=== PATIENT | female | born 1960 | race Caucasian/White ===

== ENCOUNTER 2016-08-19 15:58 | Emergency (ER) | payer MEDICAID, OTHER ==
[2016-08-19 16:06] VITALS: RESP 18; O2SAT 98
--- NOTE | 2016-08-19 16:31 | EDPHY ---
H & P Time Seen by Provider: 08/19/16 16:22 HPI/ROS: CHIEF COMPLAINT: Right lateral knee pain HISTORY OF PRESENT ILLNESS: 56-year-old female complaining of right lateral knee pain after she was in aerobics class yesterday, jumped laterally and felt immediate right posterolateral knee pain. She is able to bear weight albeit with pain. Notes history of intermittent knee locking up previously. No paresthesia. No direct trauma or fall. PHYSICAL EXAM (Prior to examination, patient consented to physical exam, hands were washed and my usual and customary physical exam procedures followed) 1) GENERAL: Well-developed, well-nourished, alert and oriented. Appears to be in no acute distress. 2) HEAD: Normocephalic 3) HEENT: Pupils equal, round, reactive to light bilaterally. 4) LUNGS: Breathing comfortably. 5) MUSCULOSKELETAL: Exam of the right knee shows soft tissue swelling/fusion . Compartments are soft. tender to palpation posterior lateral aspect of the knee reproducible with range of motion. Full flexion and extension. 6) SKIN: intact no discoloration 7) VASCULAR: DP,PT pulses and cap refill present and brisk distally DIFFERENTIAL DIAGNOSIS: in no particular order including but not limited to fracture, sprain, compartment syndrome, septic arthritis, DVT Xray of the right knee interpreted by myself: no definitive acute osseous abnormality Procedure: Splint A knee immobilizer splint was applied by ER wind technician. After application of the splint I returned and re-examined the patient. The splint was adequately immobilizing the joint and distal to the splint the patient's circulation and sensation were intact. Patient shows no signs of compartment syndrome. Was given orthopedic precautions. MEDICAL DECISION MAKING Serial evaluations performed on patient. I discussed the limitations of x-ray in diagnosis of knee pain and injury. At this time I do not think that emergent MRI is currently indicated. However, I have recommended follow-up with Orthopedic surgery and provided this referral information. Informed the patient that outpatient MRI may be indicated. Doubt septic arthritis. Doubt compartment syndrome. Doubt DVT. Smoking Status: Never smoked Constitutional: Initial Vital Signs Temperature (C) 36.8 C 03/03/17 16:00 Heart Rate 86 08/19/16 16:00 Respiratory Rate 18 08/19/16 16:00 Blood Pressure 140/93 H 08/19/16 16:00 O2 Sat (%) 98 08/19/16 16:00 O2 Delivery Mode Room Air Allergies/Adverse Reactions: No Known Allergies Allergy (Unverified 08/19/16 16:06) Home Medications: Medication Instructions Recorded ALPRAZolam [Xanax 1 MG (*)] 1 mg PO 08/19/16 MDM/Departure - Depart Disposition: Home, Routine, Self-Care Clinical Impression: Right knee sprain Qualifiers: Encounter type: initial encounter Involved ligament of knee: unspecified ligament Qualified Code(s): S83.91XA - Sprain of unspecified site of right knee , initial encounter Condition: Good Instructions: Knee Sprain (ED) Additional Instructions: Return to the ER immediately if you experience discoloration, have worsening pain, numbness, tingling, or any other symptoms that concern you. If you received x-rays in the emergency department today, be advised, that ligamentous , tendon, muscular, and other non-bony injury cannot be fully ruled out. Try to keep your affected extremity elevated above the level of your chest, and keep cold packs on the affected area, for the next 48 hours. Referrals: Nolan Sandoval MD [Medical Doctor] - 5-7 days, call for appt.
[2016-08-19 16:53] VITALS: BP 130/85; PULSE 75; TEMP 98.4
== END 2016-08-19 16:50 | disposition home or self-care (01) ==
DX: S83.91XA Sprain of unspecified site of right knee, initial encounter (principal); X58.XXXA Exposure to other specified factors, initial encounter; Y92.89 Other specified places as the place of occurrence of the external cause; Y99.8 Other external cause status; Y93.A3 Activity, aerobic and step exercise
CPT/HCPCS: L1830

== ENCOUNTER → 2017-07-13 | Outpatient (CLI) | payer MEDICAID | LOC: FIMAGING 16:02 | PROVIDERS: ATTEND Orthopaedic Surgery Sports Medicine | DX: S83.241A Other tear of medial meniscus, current injury, right knee, initial encounter (principal); M22.41 Chondromalacia patellae, right knee; M25.461 Effusion, right knee ==